=== PATIENT | female | born 1945 | race Caucasian/White ===

== ENCOUNTER → 2018-09-11 | Outpatient (CLI) | payer MEDICARE ==
--- NOTE | 2018-09-11 13:41 | RADIOLOGY IMAGING REPORT ---
[place] [facility] [place] Carmen Ballard : 1945 MR: [id number] V: [id number] EXAM DATE: ORDERING PHYSICIAN: ESME JARQUIN TECHNOLOGIST: Location: [facility] Patient: Carmen Ballard : 1945 Visit/Account:[id number] Date of Sevice: 09/11/2018 Exam type: SHOULDER MIN 2 VIEWS RIGHT History: Pain in right shoulder x5 months, numbness and tingling radiating down right arm x5 months, no known trauma Comparison: None. Findings: Three views were submitted. There is moderate narrowing at the right glenohumeral joint with inferio r spurring along the right glenoid. There are moderate degenerative changes at the right AC joint. There is no evidence of acute fracture or dislocation IMPRESSION: 1. 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
== END ==
LOC: RAD 10:03
PROVIDERS: ATTEND Family Medicine
DX: M19.011 Primary osteoarthritis, right shoulder (principal)